=== PATIENT | male | born 1990 | race Two or more races ===

== ENCOUNTER 2020-09-24 18:58 | Emergency (ER) | payer MEDICAID ==
[~2020-09-24] VITALS: Ht 170.2 cm; Wt 103.2 kg
[2020-09-24] MEDS ORDERED: morphine 4 MG/ML inj SYRINge IM ONE (20:10)
--- NOTE | 2020-09-24 20:40 | NUR ---
PT TO [facility]
--- NOTE | 2020-09-24 20:52 | NUR ---
PT BACK FROM [facility]
[2020-09-24] MEDS ORDERED: orphenadrine citrate 60mg/2ml inj. IM ONE (21:10)
[2020-09-24 21:15] VITALS: BP 136/72
[2020-09-24] MEDS ORDERED: ACET-2006 PO (21:35)
[2020-09-24] MEDS ORDERED: IBUP-1985 PO (21:35)
[2020-09-24] MEDS ORDERED: CYCL-1 PO (21:35)
== END 2020-09-24 21:28 | disposition home or self-care (01) ==
LOC: ER 18:59
DX: M54.5 Low back pain (principal); F17.200 Nicotine dependence, unspecified, uncomplicated; Z88.0 Allergy status to penicillin; Z79.899 Other long term (current) drug therapy; Z86.19 Personal history of other infectious and parasitic diseases
CPT/HCPCS: 72100; 96372; 99284; J2270; J2360